=== PATIENT | female | born 1995 | race Caucasian/White ===

== ENCOUNTER 2021-02-25 12:24 | Emergency (ER) | payer BC, SELFPAY ==
--- NOTE | 2021-02-25 | ECG_ITS ---
Test Reason : CHEST PAIN Blood Pressure : / mmHG Vent. Rate : 089 BPM Atrial Rate : 089 BPM P-R Int : 148 ms QRS Dur : 078 ms QT Int : 356 ms P-R-T Axes : 066 048 027 degrees QTc Int : 433 ms Normal sinus rhythm Normal ECG When compared with ECG of 07-NOV-2015 03:04, Premature atrial complexes are no longer Present Nonspecific T wave changes improved. Referred By: Generic ED Physician Electronically Signed By:Jose Sifuentes
--- NOTE | ~2021-02-25 | XR_ITS ---
EXAMINATION: XR CHEST CLINICAL INFORMATION: Chest pain COMPARISON: None TECHNIQUE: Portable upright AP view of the chest was obtained. FINDINGS: There is no pneumothorax, airspace consolidation, pleural reaction, or effusion. No pneumomediastinum. The costophrenic sulci are clear. The heart is normal in size. The hilar and mediastinal contours are normal. No visible acute bony abnormality. There are bilateral nipple piercings. No free air beneath the diaphragm. XR/XR chest 1V IMPRESSION: Unremarkable examination.
[2021-02-25 13:02] VITALS: BP 111/57; PULSE 93; RESP 18; TEMP 37.1; O2SAT 99; BMI 26.6
[2021-02-25 15:52] LABS: MANUAL DIFF FLAG NO
[2021-02-25 15:53] LABS: Basophils Percent Auto 0.3 % (0-2); Eosinophils Percent Auto 0.3 % (0-4); Hematocrit 39.2 % (37-47); Hemoglobin 13.3 g/dl (12.0-16.0); Imm Gran Abs Auto 0.03 X10*3/uL (0.00-0.03); Imm Gran Pct Auto 0.5 % (0.0-0.4); Lymphocytes Absolute Auto 0.7 X10*3/uL (1.2-4.9); Mean Corpuscular HGB Conc 33.9 g/dl (31.0-35.0); Mean Corpuscular Hemoglobin 29.3 pg (27.0-33.0); Mean Corpuscular Volume 86.3 fL (80-98); Mean Platelet Volume 9.5 fL (9.4-12.3); Monocytes Percent Auto 16.4 % (2-11); Neutrophils Absolute Auto 4.3 X10*3/uL (2.0-8.3); Neutrophils Percent Auto 71.5 % (45-73); Platelet Count 162 X10*3/uL (160-400); Red Blood Count 4.54 X10*6/uL (4.20-5.50); Red Cell Distribution Width 12.2 % (11.0-16.0)
--- NOTE | 2021-02-25 16:06 | ED.CHESTPAIN ---
HPI - Chest Pain General Chief Complaint: Chest Pain Stated Complaint: severe chest pain Time Seen by Provider: 02/25/21 16:06 Source: patient Mode of arrival: ambulatory History of Present Illness HPI narrative: chest pain since last night,better now,denies SOB,exertional symptoms,diaphoresis,radiation of the pain complaint: chest pain Timing of current episode: other (decresing) Prior episodes: No Pain location: substernal Pain radiation: none Severity: mild Quality: aching Relieving factors: nothing Exacerbating factors: nothing Risk Factors Coronary artery disease risk factors: none Thoracic aortic dissection risk factors: none Related Data Allergies Allergy/AdvReac Type Severity Reaction Status Date / Time No Known Allergies Allergy Verified 02/25/21 13:02 [No Known Allergies*] Review of Systems Review of Systems: Yes all other systems are reviewed and are negative Constitutional: Constitutional: Reports no additional constitutional complaints ENT: Reports system reviewed and no additional complaints, except as documented Cardiovascular: Cardiovascular: Reports no additional cardiovascular complaints, Denies dyspnea and Denies dyspnea on exertion Respiratory: Respiratory: Denies cough, Denies hemoptysis, Denies pain on inspiration, Denies dyspnea and Denies dyspnea on exertion Gastrointestinal: Gastrointestinal: Denies vomiting Integumentary/Breasts: Skin/Breast: Reports system reviewed and no additional complaints, except as docu Allergic/Immunologic: Allergic/Immunologic: Reports no additional allergic/immunologic complaints [facility] Past Medical History [facility] Narrative: anxiety Medical History Patient denies medical problems Social History Social History Alcohol intake: current Alcohol intake frequency: holidays/special occasions only Patient Tobacco Use Status: Never used Tobacco Use of substances other than those prescribed or required for medical reasons: No Advance Directives: No Advance Directives Information Provided: Yes Advance Directives on File: No Physical Exam Vital Signs: Vital Signs: Last Vital Signs Temp 98.7 F 02/25/21 13:02 Pulse 85 02/25/21 16:34 Resp 15 02/25/21 16:34 BP 136/83 02/25/21 16:34 Pulse Ox 98 02/25/21 16:34 Body Mass Index 26.6 Const: General: cooperative, healthy appearing and comfortable Orientation/consciousness: oriented to person, oriented to place, oriented to time and patient oriented x3 HENMT: Head: Yes normal to inspection and Yes No palpable skull fracture present General nose exam: Normal external nose present Mouth: Normal oral and palatal mucosa present Throat: Yes posterior oropharynx normal Neck: Neck: Yes normal visual inspection and Yes full ROM Thyroid: Thyroid normal Chest: Chest palpation & inspection: normal inspection of the chest and normal palpation of entire chest wall Resp: Effort & Inspection: normal respiratory effort and no audible wheezes Auscultation: clear to auscultation bilaterally Cardio: Jugular venous distension: no JVD Rate: regular rate Heart sounds: S1 normal heart sound present and S2 normal heart sound present GI: Inspection: Yes normal to inspection Palpation (GI): Soft to palpation, nontender and no guarding Auscultation: normal bowel sounds Skin: General skin exam: no rashes or lesions noted, elasticity normal and turgor normal Lesions: no lesions Rashes: no rashes Neuro: General: oriented to person, oriented to place, oriented to time, patient oriented x3, gait normal and tone normal Course Course Course Narrative: remain stable VSS,asyntomatic now,VSS ok to d/c MDM - Chest Pain MDM Narrative Medical decision making narrative: heart score is 0,unlikely PE sat 99% no SOB,low risk OK to d/c home with f/u with PCP Lab Data Attestation: I reviewed the patient's lab results. Result diagrams: 02/25/21 15:48 02/25/21 15:48 Labs: Lab Results 02/25/21 02/25/21 02/25/21 Range/Units 15:48 15:48 15:48 WBC 6.0 (4.8-10.8) X10*3/uL RBC 4.54 (4.20-5.50) X10*6/uL Hgb 13.3 (12.0-16.0) g/dl Hct 39.2 (37-47) % MCV 86.3 (80-98) fL MCH 29.3 (27.0-33.0) pg MCHC 33.9 (31.0-35.0) g/dl RDW 12.2 (11.0-16.0) % Plt Count 162 (160-400) X10*3/uL MPV 9.5 (9.4-12.3) fL Immature Gran % (Auto) 0.5 H (0.0-0.4) % Neut % (Auto) 71.5 (45-73) % Lymph % (Auto) 11.0 L (20-40) % [place] % (Auto) 16.4 H (2-11) % Eos % (Auto) 0.3 (0-4) % Baso % (Auto) 0.3 (0-2) % Lymph # (Auto) 0.7 L (1.2-4.9) X10*3/uL [place] # (Auto) 1.0 (0.1-1.2) X10*3/uL Eos # (Auto) 0.0 (0.0-0.4) X10*3/uL Baso # (Auto) 0.0 (0.0-0.2) X10*3/uL Abs Immat Gran (auto) 0.03 (0.00-0.03) X10*3/uL Absolute Neuts (auto) 4.3 (2.0-8.3) X10*3/uL Absolute Nucleated RBC 0.000 (0.0-0.012) X10*3/uL Nucleated RBC % (auto) 0.0 (0.0-0.2) /100WBC Sodium 139 (135-145) mmol/L Potassium 3.5 (3.3-5.1) mmol/L Chloride 105 (96-108) mmol/L Carbon Dioxide 24 (22-29) mmol/L Anion Gap 14 (12-20) BUN 8 L (9-16) mg/dL Creatinine 0.90 (0.5-1.4) mg/dL Estim Creat Clear Calc 96.1 Estimated GFR > 60 Random Glucose 95 (60-115) mg/dL Calcium 9.2 (8.4-10.2) mg/dL Total Bilirubin 0.5 (0.0-1.0) mg/dL Direct Bilirubin 0.2 (0.0-0.5) mg/dL AST 14 (5-31) U/L ALT 8 (0-31) U/L Alkaline Phosphatase 62 (39-117) U/L Troponin I High Sens < 3.5 (<3.5-17.0) ng/L Total Protein 7.7 (6.5-8.0) g/dL Albumin 4.8 (3.5-5.0) g/dL Lipase 31 (8-78) U/L Imaging Data Chest x-ray: Attestation: I personally reviewed and interpreted this imaging study as follows: My impression: NAD ECG Data ECG #1: ECG interpretation date: 02/25/21 ECG interpretation time: 16:10 Pacemaker model: NSR 89 no ishemic changes Discharge Plan Discharge Clinical Impression: Chest pain Patient Disposition: Home, Self-Care Instructions: Chest Pain (ED) Additional Instructions: follow up with your Primary care Doctor,return if worse,any concern Referrals: Physician,Unknown [Primary Care Provider] - 2 days
[2021-02-25 16:26] LABS: Alanine Aminotransferase 8 U/L (0-31); Albumin Level 4.8 g/dL (3.5-5.0); Alkaline Phosphatase 62 U/L (39-117); Anion Gap 14 (12-20); Aspartate Amino Transferase 14 U/L (5-31); Bilirubin Direct 0.2 mg/dL (0.0-0.5); Bilirubin Total 0.5 mg/dL (0.0-1.0); Blood Urea Nitrogen 8 mg/dL (9-16); Calcium 9.2 mg/dL (8.4-10.2); Carbon Dioxide 24 mmol/L (22-29); Chloride 105 mmol/L (96-108); Creatinine Clr Calc Pharmacy 96.1; Estimated Glomerular Filt Rate > 60; Glucose Random 95 mg/dL (60-115); Lipase 31 U/L (8-78); Potassium 3.5 mmol/L (3.3-5.1); Sodium 139 mmol/L (135-145); Total Protein 7.7 g/dL (6.5-8.0)
[2021-02-25 16:27] LABS: Troponin-I High Sensitivity < 3.5 ng/L (<3.5-17.0)
[2021-02-25 16:34] VITALS: BP 136/83; PULSE 85; RESP 15; O2SAT 98
--- NOTE | 2021-02-25 16:35 | PC.NURSE ---
Patient is alert and oriented without noted distress. Pt states that left side chest pain comes and goes as well as varies in intensity from a 3-5/10. pt denies sob, or nausea.
[2021-02-25 16:36] VITALS: PULSE 84
[2021-02-25 17:01] LABS: Glucose Urine UA NEG (NEG); Leukocyte Esterase Urine NEG (NEG); Nitrite Urine NEG (NEG); Specific Gravity - Urine >= 1.030 (1.005-1.025); UACC Culture Trigger NO; Urine Blood 3+ (NEG); Urine Ketones 15 MG/DL (NEG); Urine Protein TRACE MG/DL (NEG-TRACE)
[2021-02-25 17:02] LABS: Appearance Urine CLEAR; Color Urine YELLOW
[2021-02-25 17:04] LABS: UPreg QC Valid YES; Urine Pregnancy NEGATIVE (NEGATIVE)
[2021-02-25 17:06] VITALS: BP 127/80; PULSE 87; RESP 14; O2SAT 98
[2021-02-25 17:09] LABS: Mucus Urine 2+ /LPF; RBC Urine 30-49 /HPF (0); Squamous Epithelial Cell Urine 1+ /LPF; Uric Acid Crystals Urine TRACE /LPF; WBC Urine 0-2 /HPF (0-4)
[2021-02-25] MEDS: LORazepam 0.5 MG TABLET PO (17:16)
== END 2021-02-25 17:17 | disposition home or self-care (01) ==
LOC: HO.ED 16:38
PROVIDERS: Emergency Provider Emergency Medicine
DX: R07.9 Chest pain, unspecified (principal); R06.02 Shortness of breath
CPT/HCPCS: 36415; 71045; 80048; 80076; 81001; 81025; 83690; 84484; 85025; 93005; 99284; 99285

== ENCOUNTER 2024-09-01 08:59 | Emergency (ER) | payer MEDICAID, SELFPAY ==
[2024-09-01] VITALS (7 sets, daily range): BP systolic 109–137; BP diastolic 71–82; PULSE 109–140; RESP 10–24; TEMP 36.6–37.2; O2SAT 96–99; BMI 29.0
--- NOTE | 2024-09-01 | ECG_ITS ---
Test Reason : SOB, CP Blood Pressure : */* mmHG Vent. Rate : 125 BPM Atrial Rate : 125 BPM P-R Int : 112 ms QRS Dur : 72 ms QT Int : 408 ms P-R-T Axes : * 37 17 degrees QTcB Int : 588 ms Sinus tachycardia Nonspecific T wave abnormality Abnormal ECG No previous ECGs available Referred By: Generic ED Physician Electronically Signed By: Jose Sifuentes
--- NOTE | ~2024-09-01 | XR_ITS ---
CLINICAL HISTORY: tachycardia, cough 1 view chest x-ray Comparison: None Findings: Mild bronchial wall thickening could reflect bronchitis/bronchiolitis or a viral etiology. No dense focal lobar consolidation. No pleural effusion or pneumothorax. Normal size cardiac silhouette. No acute fracture. IMPRESSION: Mild bronchial wall thickening could reflect bronchitis/bronchiolitis or a viral etiology. No dense focal lobar consolidation. This document has been electronically signed by: Katja Mauricio MD on 09/01/2024 10:13:31
--- NOTE | ~2024-09-01 | XR_ITS ---
CLINICAL HISTORY: Stridulous breathing 2 views soft tissue neck Comparison: None Findings No acute fractures or dislocation. Epiglottis unremarkable. Subglottic airway is normal. No narrowing. No prevertebral soft tissue swelling. No foreign bodies. IMPRESSION: No acute findings. This document has been electronically signed by: Katja Mauricio MD on 09/01/2024 11:54:22
--- NOTE | 2024-09-01 09:13 | ED.GENADULT ---
HPI - General Adult General Chief complaint: Dyspnea Stated complaint: diff breathing Time Seen by Provider: 09/01/24 09:13 History of Present Illness ED Provider: Demetri VARELA narrative: The patient is a 29-year-old woman who says that she started to feel ill 2 days ago on Monday. She says that her symptoms began with a runny nose and a cough. She thought she was getting a cold. Her symptoms worsened yesterday. She started to feel short of breath yesterday and was even more short of breath today and so came to the emergency room. She feels like the problem with her breathing is in her throat or her neck. She has a produced some blood-tinged sputum she says. Related Data Previous Rx's ?Medication ?Instructions ?Recorded sumatriptan succinate 50 mg tablet See Rx Instructions PO .COMPLEX 30 09/25/23 days #12 tabs albuterol sulfate 90 mcg/actuation 2 puff inhalation Q4-6H PRN 09/01/24 aerosol inhaler shortness of breath or wheezing #8.5 grams oseltamivir 75 mg capsule 75 mg PO BID #9 caps 09/01/24 prednisone 20 mg tablet 40 mg (2 x 20 mg) PO DAILY 3 days 09/01/24 #6 tabs Allergies Allergy/AdvReac Type Severity Reaction Status Date / Time No Known Allergies Allergy Verified 09/01/24 09:04 Review of Systems Review of Systems: Yes all other systems are reviewed and are negative [facility] Past Medical History Medical History (Updated 09/01/24 @ 13:33 by Hector Mosquera MD) Irregular heartbeat delivery delivered Migraines Dyslexia Surgical History (Updated 08/02/23 @ 10:11 by Samria Walls CMA) [place] teeth extracted Family History Family History (Updated 08/02/23 @ 10:13 by Samira Walls CMA) Father H/O heart artery stent Mother Stroke Paternal Grandmother Breast cancer Maternal Grandmother Lung cancer Social History Social History (Updated 08/02/23 @ 10:18 by Samira Walls CMA) Household Members: Family Housing: House Are you a primary child care centre manager to a significant other at home: Yes Do you presently have visiting nurse or other home services: No Alcohol intake: current Comment: special occasions Patient Tobacco Use Status: Never used Tobacco e-Cigarette/Vaping Use: Never Used Special yoly needs: No Advance Directives: No Advance Directives Information Provided: Yes service: No Current occupational status: employed Current occupation: Activities. Cognitive needs: No Hearing needs: No Vision needs: No Physical Exam ED Vital Signs: Vital Signs - 24 hr 09/01/24 09:01 09/01/24 09:42 09/01/24 09:56 Temperature 97.8 F Pulse Rate 140 H 117 H 123 H Respiratory Rate 24 H 10 L 22 H Blood Pressure 137/82 114/76 Pulse Oximetry 97 96 Oxygen Delivery Method Room Air Room Air 09/01/24 10:49 09/01/24 11:17 09/01/24 12:42 Temperature 98.8 F Pulse Rate 109 H 110 H 127 H Respiratory Rate 15 18 17 Blood Pressure 109/72 114/71 Pulse Oximetry 98 99 Oxygen Delivery Method Room Air Room Air 09/01/24 13:59 Temperature 98.9 F Pulse Rate 127 H Respiratory Rate 17 Blood Pressure 114/71 Pulse Oximetry 99 Oxygen Delivery Method Room Air BMI result Body Mass Index 29.0 Const Other: The patient is awake and alert. She is pleasant and cooperative. She seems mildly short of breath and seems to have abnormal upper airway breath sounds. HENMT Other: Face is symmetrical. The posterior pharynx is unremarkable. Eyes General: appearance normal, both eyes and all related structures Neck Other: There is some increased breath sounds at the neck but I do not think there is true stridor. Resp Other: No obvious increased work of breathing or tachypnea. Lower airway breath sounds seem clear. Cardio Rate: tachycardic Rhythm: regular rhythm Heart sounds: S1 normal heart sound present and S2 normal heart sound present GI Other: Abdomen is soft and nontender Skin Other: Skin is dry and unremarkable Neuro Other: The patient is awake and alert with a normal mental status. Cranial nerves are grossly intact. She moved her extremities normally Extrem Other: No calf swelling or tenderness. No peripheral edema. Medications Administered Discontinued Medications Generic Name Dose Route Start Last Admin Trade Name Freq PRN Reason Stop Dose Admin Levalbuterol HCl 5 mg/ 0 mg 09/01/24 09:55 09/01/24 11:14 Ipratropium [place] 0.5 mg INHALE 09/01/24 09:56 1 dose ONCE ONE Administration Dexamethasone Sodium Phosphate 8 mg 09/01/24 11:52 09/01/24 12:33 Dexamethasone Sod Phosphate 4 Mg/Ml Vial IVPUSH 09/01/24 11:53 8 mg ONCE ONE Administration Epinephrine 0.5 ml 09/01/24 09:50 09/01/24 09:53 Racepinephrine Hcl 0.5 Ml Vial.Neb INHALE 09/01/24 09:51 0.5 ml ONCE ONE Administration Sodium Chloride 1,000 mls @ 999 mls/hr 09/01/24 10:15 09/01/24 11:15 Ns IV 09/01/24 11:15 Infused .Q1H1M LYNDA Infusion Sodium Chloride 1,000 mls @ 999 mls/hr 09/01/24 12:30 09/01/24 12:28 Ns IV 09/01/24 13:30 999 mls/hr .Q1H1M YLNDA Administration Acetaminophen 1,000 mg in 100 mls @ 400 mls/hr 09/01/24 12:16 09/01/24 12:34 Ofirmev IV 09/01/24 12:30 400 mls/hr ONCE ONE Administration Ketorolac Tromethamine 10 mg 09/01/24 10:03 09/01/24 10:13 Ketorolac Tromethamine 15 Mg/Ml Vial IVPUSH 09/01/24 10:04 10 mg ONCE ONE Administration Oseltamivir Phosphate 75 mg 09/01/24 11:52 09/01/24 12:26 Oseltamivir Phosphate 75 Mg Capsule PO 09/01/24 11:53 75 mg ONCE ONE Administration Medical Decision Making Medical Decision Making [facility] Narrative: The patient is a very pleasant 29-year-old who started to feel ill 2 days ago with respiratory symptoms which have progressed to a sense of shortness of breath. She arrived quite tachycardic. She looked somewhat short of breath but her breathing sounded more like she was having upper airway problems than lower airway problems. Her lungs sound clear. She was not really exhibiting true stridor however. She was handling her secretions without difficulty. The patient has a chest x-ray that does not show any definite pneumonia. She has a soft tissue neck x-ray that does not show any abnormal soft tissue swelling such as epiglottitis or retropharyngeal swelling. A viral swab was positive for influenza A. The blood tests were largely unremarkable including a normal D-dimer. Since my initial impression was that she seemed to possibly have some upper airway obstruction she was given a racemic epinephrine. She was already fairly tachycardic when this was initiated but her heart rate then went up to the 160s and it was stopped. Her heart rate recovered IV fluids as well as ketorolac. Ultimately she was given a dose of Xopenex and a dose of dexamethasone IV as well. She was observed. After 2 L of IV fluids her heart rate came down to practically 100. She was started on oseltamivir. Ultimately I think that she has influenza which has caused some degree of subtle airway inflammation. She will be discharged with prescriptions for oseltamivir, prednisone, and albuterol. She should return if worse. Lab Data 09/01/24 09:17 09/01/24 09:17 Labs: Lab Results 09/01/24 09/01/24 Range/Units 09:17 13:55 WBC 7.1 (4.8-10.8) X10*3/uL RBC 4.62 (4.20-5.50) X10*6/uL Hgb 13.5 (12.0-16.0) g/dl Hct 39.1 (37.0-47.0) % MCV 84.6 (80.0-98.0) fL MCH 29.2 (27.0-33.0) pg MCHC 34.5 (31.0-35.0) g/dl RDW 12.2 (11.0-16.0) % Plt Count 177 (160-400) X10*3/uL MPV 9.7 (9.4-12.3) fL Immature Gran % (Auto) 0.4 (0.0-0.4) % Neut % (Auto) 76.5 H (45-73) % Lymph % (Auto) 11.3 L (20-40) % [place] % (Auto) 10.8 (2-11) % Eos % (Auto) 0.7 (0-4) % Baso % (Auto) 0.3 (0-2) % Lymph # (Auto) 0.8 L (1.2-4.9) X10*3/uL [place] # (Auto) 0.8 (0.1-1.2) X10*3/uL Eos # (Auto) 0.1 (0.0-0.4) X10*3/uL Baso # (Auto) 0.0 (0.0-0.2) X10*3/uL Abs Immat Gran (auto) 0.03 (0.00-0.03) X10*3/uL Absolute Neuts (auto) 5.4 (2.0-8.3) x10*3/uL Absolute Nucleated RBC 0.000 (0.0-0.012) X10*3/uL Nucleated RBC % (auto) 0.0 (0.0-0.2) /100WBC PT 12.8 H (10.9-12.4) SEC INR 1.1 (0.9-1.1) APTT 36.2 (26.0-36.8) SEC D-Dimer High Sensitivty 200 NG/ML Sodium 137 (135-145) mmol/L Potassium 3.8 (3.3-5.1) mmol/L Chloride 106 (96-108) mmol/L Carbon Dioxide 21 L (22-29) mmol/L Anion Gap 14 (12-20) BUN 7 L (9-16) mg/dL Creatinine 0.96 (0.5-1.4) mg/dL Estim Creat Clear Calc 90.6 Estimated GFR > 60 Random Glucose 98 (60-115) mg/dL Calcium 9.5 (8.4-10.2) mg/dL Magnesium 1.9 (1.6-2.6) mg/dL Total Bilirubin 0.4 (0.0-1.0) mg/dL AST 28 (5-31) U/L ALT 22 (0-31) U/L Alkaline Phosphatase 53 (39-117) U/L Troponin I High Sens < 2.7 (<3.5-17.0) ng/L C-Reactive Protein 1.12 H (< or = 0.50) mg/dL Total Protein 8.6 H (6.5-8.0) g/dL Albumin 4.8 (3.5-5.0) g/dL Beta HCG, Quant < 2 mIU/mL Influenza Type A (PCR) POSITIVE A (Negative) Influenza Type B (PCR) NEGATIVE (Negative) RSV RNA Qual (PCR) NEGATIVE (Negative) SARS-CoV-2 RNA (RT-PCR) NEGATIVE (Negative) S. pyogenes GrpA JENNIE Negative (Negative) Discharge Plan Discharge Clinical Impression: Influenza A, Shortness of breath Patient Disposition: Home, Self-Care Additional Instructions: You have tested positive for the flu today. I think this is caused some inflammation in your airways that was affecting your breathing. You has been started on a medication called oseltamivir (Tamiflu) which is an anti influenza medication. You were also given a dose of a steroid medication called dexamethasone. I have sent a prescription for additional oseltamivir. Please take this medication for the next 5 days. Take this medication 2 times a day, next dose this evening. I have sent a prescription for some additional steroid medications, prednisone. Please take this medication once a day, next dose tomorrow morning. I have also sent an albuterol inhaler which you can use to see if it helps with any sense of shortness of breath you might still experience. Please stay in touch with your regular doctor for additional advice as needed. If your breathing gets significantly worse please return to the emergency department. Prescriptions: New oseltamivir 75 mg capsule 75 mg PO BID Qty: 9 0RF prednisone 20 mg tablet 40 mg PO DAILY 3 Days Qty: 6 0RF albuterol sulfate 90 mcg/actuation HFA aerosol inhaler 2 puff inhalation Q4-6H PRN (Reason: shortness of breath or wheezing) Qty: 8.5 0RF No Action sumatriptan succinate 50 mg tablet See Rx Instructions PO .COMPLEX 30 Days Qty: 12 3RF Rx Instructions: take 1 tab at onset of headache; if no relief may repeat 1 tab after at least 2 hrs; max = 2 tabs/24 hr PO Referrals: [facility] Family Medicine [Provider Group] (Influenza, shortness of breath) Stand Alone Forms: Work/School Release Interventions: ED Discharge Assessment Last Done: 09/01/24 13:59 Discharge Date/Time: 09/01/24 13:59 Print Language: [place]
[2024-09-01 09:22] LABS: MANUAL DIFF FLAG NO
[2024-09-01 09:23] LABS: Basophils Percent Auto 0.3 % (0-2); Eosinophils Absolute Auto 0.1 X10*3/uL (0.0-0.4); Eosinophils Percent Auto 0.7 % (0-4); Hematocrit 39.1 % (37.0-47.0); Hemoglobin 13.5 g/dl (12.0-16.0); Imm Gran Abs Auto 0.03 X10*3/uL (0.00-0.03); Imm Gran Pct Auto 0.4 % (0.0-0.4); Lymphocytes Absolute Auto 0.8 X10*3/uL (1.2-4.9); Lymphocytes Percent Auto 11.3 % (20-40); Mean Corpuscular HGB Conc 34.5 g/dl (31.0-35.0); Mean Corpuscular Hemoglobin 29.2 pg (27.0-33.0); Mean Corpuscular Volume 84.6 fL (80.0-98.0); Mean Platelet Volume 9.7 fL (9.4-12.3); Monocytes Absolute Auto 0.8 X10*3/uL (0.1-1.2); Monocytes Percent Auto 10.8 % (2-11); Neutrophils Absolute Auto 5.4 x10*3/uL (2.0-8.3); Neutrophils Percent Auto 76.5 % (45-73); Platelet Count 177 X10*3/uL (160-400); Red Blood Count 4.62 X10*6/uL (4.20-5.50); Red Cell Distribution Width 12.2 % (11.0-16.0); White Blood Count 7.1 X10*3/uL (4.8-10.8)
[2024-09-01 09:29] LABS: INTERNATIONAL NORM RATIO 1.1 (0.9-1.1); Prothrombin Time 12.8 SEC (10.9-12.4)
[2024-09-01 09:32] LABS: Partial Thromboplastin Time 36.2 SEC (26.0-36.8)
[2024-09-01 09:46] LABS: Alanine Aminotransferase 22 U/L (0-31); Albumin Level 4.8 g/dL (3.5-5.0); Alkaline Phosphatase 53 U/L (39-117); Anion Gap 14 (12-20); Aspartate Amino Transferase 28 U/L (5-31); Bilirubin Total 0.4 mg/dL (0.0-1.0); Blood Urea Nitrogen 7 mg/dL (9-16); Calcium 9.5 mg/dL (8.4-10.2); Carbon Dioxide 21 mmol/L (22-29); Chloride 106 mmol/L (96-108); Creatinine Clr Calc Pharmacy 90.6; Estimated Glomerular Filt Rate > 60; Glucose Random 98 mg/dL (60-115); Magnesium 1.9 mg/dL (1.6-2.6); Potassium 3.8 mmol/L (3.3-5.1); Sodium 137 mmol/L (135-145); Total Protein 8.6 g/dL (6.5-8.0)
[2024-09-01] MEDS: Racepinephrine HCL 0.5 ML VIAL.NEB INHALE (09:53)
[2024-09-01 09:59] LABS: Influenza A PCR POSITIVE (Negative); Influenza B PCR NEGATIVE (Negative); Resp Syncy Virus RNA Qual PCR NEGATIVE (Negative); SARS COV2 PCR INHOUSE NEGATIVE (Negative)
[2024-09-01 10:08] LABS: Troponin-I High Sensitivity < 2.7 ng/L (<3.5-17.0)
[2024-09-01] MEDS: Ketorolac Tromethamine 15 MG/ML VIAL 10 MG IVPUSH (10:13)
[2024-09-01] MEDS: 0.9 % Sodium Chloride 1,000 ML 999 ML IV ×2 (10:14→12:28)
[2024-09-01 10:23] LABS: C Reactive Protein 1.12 mg/dL (< or = 0.50)
[2024-09-01 10:27] LABS: HCG Quantitative < 2 mIU/mL
[2024-09-01] MEDS: levalbuterol HCL 5 MG, Ipratropium Bromide 0.5 MG INHALE (11:14)
[2024-09-01 12:26] LABS: D Dimer High Sensitivity 200 NG/ML
[2024-09-01] MEDS: Oseltamivir Phosphate 75 MG CAPSULE PO (12:26)
[2024-09-01] MEDS: dexAMETHasone sod phosphate 4 MG/ML VIAL 8 MG IVPUSH (12:33)
[2024-09-01] MEDS: Acetaminophen 1,000 MG/100 ML PIGGYBACK 400 MG IV (12:34)
[2024-09-01 14:07] LABS: IDNOW Serial# 58CA691E; Strep A Nucleic Acid Negative (Negative)
== END 2024-09-01 13:59 | disposition home or self-care (01) ==
PROVIDERS: Physician Assistant Medical; Emergency Provider Emergency Medicine
DX: J10.1 Influenza due to other identified influenza virus with other respiratory manifestations (principal); R06.02 Shortness of breath; R09.89 Other specified symptoms and signs involving the circulatory and respiratory systems; R05.9 Cough, unspecified; R11.0 Nausea; M54.2 Cervicalgia; Z03.818 Encounter for observation for suspected exposure to other biological agents ruled out
CPT/HCPCS: 0241U; 70360; 71045; 80053; 83735; 84484; 84702; 85025; 85379; 85610; 85730; 86140; 87651; 93005; 94640; 96361; 96374; 96375; 99284; J0131; J1100; J1885

== ENCOUNTER → 2024-09-01 09:09 | Outpatient (BNV) | payer MEDICAID, SELFPAY | PROVIDERS: Emergency Provider Emergency Medicine; Visit Provider Radiology Diagnostic Radiology | DX: R06.1 Stridor (principal); R00.0 Tachycardia, unspecified; R05.9 Cough, unspecified | CPT/HCPCS: 70360; 71045 ==